=== PATIENT | male | born 1985 | race Caucasian/White ===

== ENCOUNTER 2021-04-18 23:13 | Emergency (ER) | payer BC, OTHER ==
[~2021-04-18] VITALS: Ht 172.7 cm; Wt 70.3 kg
[2021-04-19] MEDS ORDERED: LIDOCAINE HCL 1% LOCAL INJ 20 ML VIAL INJ ONE
[2021-04-19] MEDS ORDERED: ACETAMINOPHEN-1 EAC4 PO (00:11)
== END 2021-04-19 00:30 | disposition home or self-care (01) ==
LOC: FSED 23:45
DX: S62.627A Displaced fracture of middle phalanx of left little finger, initial encounter for closed fracture (principal); W21.89XA Striking against or struck by other sports equipment, initial encounter; Y93.61 Activity, american tackle football; Y92.321 Football field as the place of occurrence of the external cause
CPT/HCPCS: 99283